=== PATIENT | female | born 1980 | race Two or more races ===

== ENCOUNTER 2020-10-15 05:30 | Day surgery (SDC) | payer OTHER | END 2020-10-15 10:05 | disposition home or self-care (01) | LOC: AMB-ENDOS 05:30 | PROVIDERS: ATTEND Surgery | DX: D13.1 Benign neoplasm of stomach (principal); Z20.822 Contact with and (suspected) exposure to COVID-19; K44.9 Diaphragmatic hernia without obstruction or gangrene ==